=== PATIENT | male | born 1955 | race Caucasian/White ===

== ENCOUNTER 2018-11-10 06:55 | Outpatient (CLI) | payer OTHER ==
--- NOTE | 2018-11-10 08:06 | ULT ---
SONOGRAM ABDOMEN COMPLETE: History: Upper abdomen pain. FINDINGS: Gallbladder has a normal appearance without evidence of stones. Common duct is 0.5 cm. Liver diffusel y echogenic without focal mass or intrahepatic biliary dilatation. No free fluid. The spleen, kidneys and visualized portions of the abdominal aortic and pancreas have a normal sonographic appearance. IMPRESSION: Hepatosteatosis. No significant abnormalities otherwise demonstrated. POS: [facility]
== END 2018-11-10 06:56 | disposition home or self-care (01) ==
LOC: BICULT 06:55
PROVIDERS: ATTEND Specialist
DX: K80.20 Calculus of gallbladder without cholecystitis without obstruction (principal); K76.0 Fatty (change of) liver, not elsewhere classified
CPT/HCPCS: 76700

== ENCOUNTER 2019-12-26 12:07 | Outpatient (CLI) | payer OTHER ==
--- NOTE | 2019-12-26 12:50 | RAD ---
LUMBAR SPINE 4 VIEWS: Date: 12/26/2019 HISTORY: Low back pain. COMPARISON: None. FINDINGS: Five non-rib bearing lumbar-type vertebrae. There is abnormal bilateral SI joint degenerative change including sclerosis and erosions. No acute fracture or malalignment. Moderate degenerative disc space height loss L5-S1 with 3 mm retro listhesis. Moderate facet arthropathy L4-S1. No significant translation with flexion or extension. With lumbar extension, there is narrowing at th e L4-5 interspinous space with sclerosis. IMPRESSION: 1. No acute fracture or malalignment. 2. Moderate degenerative disc space height loss at L5-S1 with 3.0 mm fixed retrolisthesis. No abnorm al translation with flexion or extension. 3. Narrowing of the L3-L4 interspinous space with remodeling of the inferior end plate of the L4 spi nous process with sclerosis can be a source of patient's pain when in lumbar extension. POS: HOME
== END 2019-12-26 12:08 | disposition home or self-care (01) ==
LOC: BICRAD 12:07
PROVIDERS: ATTEND Specialist
DX: M54.5 Low back pain (principal); M51.37 Other intervertebral disc degeneration, lumbosacral region; M43.17 Spondylolisthesis, lumbosacral region; M48.061 Spinal stenosis, lumbar region without neurogenic claudication
CPT/HCPCS: 72110

== ENCOUNTER 2021-01-22 15:06 | Outpatient (CLI) | payer OTHER ==
[~2021-01-22 15:06] MED LIST: Iopamidol 370 76% 100 ML VIAL ONE
== END 2021-01-22 15:07 | disposition home or self-care (01) ==
LOC: CT 15:06 → BICCT 15:07
PROVIDERS: ATTEND Specialist
DX: N23 Unspecified renal colic (principal); N20.0 Calculus of kidney
CPT/HCPCS: 74178; 82565; Q9967